=== PATIENT | female | born 1965 | race Caucasian/White ===

== ENCOUNTER → 2019-10-24 14:33 | Outpatient (CLI) | payer BC, SELFPAY | PROVIDERS: PCP Family Medicine; Visit Provider Family Medicine | DX: G47.33 Obstructive sleep apnea (adult) (pediatric) (principal); G47.10 Hypersomnia, unspecified; R06.83 Snoring | CPT/HCPCS: G0399 ==

== ENCOUNTER → 2021-02-01 13:51 | Outpatient (CLI) | payer BC, SELFPAY | PROVIDERS: PCP Family Medicine; Visit Provider Nurse Practitioner | DX: U07.1 COVID-19 (principal) | CPT/HCPCS: C9803; U0003; U0005 ==

== ENCOUNTER → 2021-03-06 16:19 | Outpatient (CLI) | payer BC, SELFPAY | PROVIDERS: PCP Family Medicine; Visit Provider Nurse Practitioner | DX: U07.1 COVID-19 (principal) | CPT/HCPCS: C9803; U0003; U0005 ==

== ENCOUNTER 2022-12-11 15:12 | Emergency (ER) | payer BC, SELFPAY ==
[2022-12-11 15:20] VITALS: BP 141/89; PULSE 107; RESP 18; TEMP 37.2; O2SAT 100; BMI 30.6
--- NOTE | 2022-12-11 15:36 | EXP.UTC ---
Discharge Plan Disposition Patient Disposition: Home, Self-Care Condition: Good Prescriptions Prescriptions: No Action fluoxetine 20 mg capsule 20 mg PO DAILY 30 Days Qty: 30 omeprazole 40 mg capsule,delayed release(DR/EC) 40 mg PO DAILY progesterone micronized 200 mg capsule 200 mg PO DAILY Referrals Follow up/Referrals: Provider,Referral, [Primary Care Provider] - See instructions Activity Restrictions/Add. Instructions Additional Instructions/Restrictions: *Monitor Temp, Over the counter Motrin or Tylenol as directed/as needed Tylenol every 4 hours and Motrin every 6 hours (as long as your family doctor has told you that you can take it) for fever or pain. and straight to ER if unable to lower temp less than 101.0 after medication given *Warm salt water gargles may help to soothe the throat *Throat Lozenges? *Warm fluids like tea with honey may help to soothe the throat? *Sleep elevated *Humidifier/Vaporizer *Your throat swab was sent for culture. Those results are typically sent to your primary care. Be sure to follow up in 2-3 days with your family doctor/primary care physician if no improvement so they can review those result and treat if necessary. If you don?t have a primary care doctor, I recommend you get one but in the mean time, you will have to return to a walk in clinic Follow up IMMEDIATELY for new or worsening symptoms or no Noticeable improvement over the next 48-72 hours. 911 for difficulty breathing or swallowing You were tested for today for COVID19 your test result should be back in the next 24 hours You may check for your results on the [facility] My Health Portal if your COVID test is positive you will need to Quarantine for 5 days Clinical Impressions Clinical Impression: Viral syndrome Stand Alone Forms Stand Alone Forms: Work/School Release Instructions Patient Instructions: DI for Viral Syndrome, DI for COVID-19 (Suspected or Confirmed ) Discharge ED Provider[place] [facility] [place] General Stated complaint: poss exposure-covid test Mode of Arrival: Ambulatory Source of Information: Patient Limitations: No Limitations Time Seen by Provider: 12/11/22 15:36 Description of Symptoms (Recalled from Triage Doc. by RN): PATIENT C/O SORE THROAT, BODY ACHES AND FATIGUE. RECENTLY EXPOSED TO COVID HEENT Symptoms (Recalled from RN notes): Yes Resp Symptoms (Recalled from RN notes): No Skin Symptoms (Recalled from RN notes): No MS Symptoms (Recalled from RN notes): No Functional Status (Recalled from RN notes): WNL History of Present Illness Provider Complaint: Patient states that she was recently around several coworkers that tested positive for COVID States that now she is having sore throat, fatigue and body aches and work wanted her to come and get tested to make sure that she doesnt have it now too Related Data Home Medications Medication Instructions Recorded Confirmed fluoxetine 20 mg capsule 20 mg PO DAILY Anxiety 30 days ##30 09/28/17 12/11/22 omeprazole 40 mg capsule,delayed 40 mg PO DAILY GERD 12/11/22 12/11/22 release progesterone micronized 200 mg 200 mg PO DAILY Supplement 12/11/22 12/11/22 capsule Allergies Allergy/AdvReac Type Severity Reaction Status Date / Time codeine [CODEINE] Allergy Mild Verified 05/05/18 18:23 Sulfa (Sulfonamide Allergy Mild Verified 05/05/18 18:23 Antibiotics) [SULFA (SULFONAMIDE ANTIBIOTICS)] Worker's Comp Is this a Worker's Comp case?: No [facility] Disclaimer: The information contained in this section may have been updated after the patient was seen, as this information can be updated by other users. Medical History (Updated 12/11/22 @ 15:47 by Jody Smith APRN) Anxiety Depression Surgical History (Updated 12/11/22 @ 15:26 by Janice Hernandez RN) History of hernia repair History of tubal ligation Social History Smoking Status: Nev
[2022-12-11 15:37] LABS: UTC Strep Screen (Rapid) Negative (Negative)
[2022-12-11 15:50] VITALS: BP 141/89; PULSE 107; RESP 18; TEMP 37.2; O2SAT 100
== END 2022-12-11 15:53 | disposition home or self-care (01) ==
PROVIDERS: Emergency Provider Nurse Practitioner
DX: B34.9 Viral infection, unspecified (principal); R53.83 Other fatigue; M79.18 Myalgia, other site; F41.9 Anxiety disorder, unspecified; F32.A Depression, unspecified; Z20.822 Contact with and (suspected) exposure to COVID-19
CPT/HCPCS: 87635; 87880; 99203; 99212; G0463